=== PATIENT | male | born 1945 | race Caucasian/White ===

== ENCOUNTER 2024-11-09 13:31 | Outpatient (CLI) | payer MEDICARE, OTHER, SELFPAY ==
--- NOTE | 2024-11-09 14:00 | CRLHL7_ITS ---
For Patients: As a result of the 21st Century Cures Act, medical imaging exams and procedure reports are released immediately into your electronic medical record. You may view this report before your referring provider. If you have questions, please contact your health care provider. INDICATION: Evaluate for ventral hernia TECHNIQUE: CT abdomen and pelvis without contrast. COMPARISON: None. FINDINGS: Lower chest: 4 mm noncalcified nodule posterior right lower lobe image 17 series 3. Liver: Normal in size and attenuation. No masses. Gallbladder and bile ducts: No stones or inflammation. No biliary dilatation. Pancreas: Unremarkable. No mass or inflammation. Spleen: Normal in size. No masses. Adrenal glands: Normal in size. No nodules. Kidneys: Normal in size. No masses, stones, or hydronephrosis. GI tract: Unremarkable. Normal in caliber. No sign of mass or inflammation. Vasculature: Postop changes of open abdominal aortic aneurysm repair. 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 Lymph nodes: No lymphadenopathy. Abdominal wall/Omentum/Peritoneum: Multiple small midline fat containing ventral hernias extending from the superior aspect of the umbilicus 2 point 6 cm inferior to the xiphoid process. There is also a small umbilical hernia containing a loop of unobstructed small bowel. Pelvis: Unremarkable. No pelvic masses. 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 IMPRESSION: 1. Multiple small fat containing ventral hernias. 2. Small umbilical hernia containing unobstructed small bowel. 3. 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 4. 4 mm right lower lobe pulmonary nodule. Follow-up guidelines below. [employer] G[employer] - SOLID NODULES: SINGLE LOW RISK - nodule less than 6 mm: No routine follow-up. - nodule 6-8 mm: CT at 6-12 months, then consider CT at 18-24 months. - nodule greater than 8 mm: Consider CT at 3 months, PET/CT or tissue sampling. SINGLE HIGH RISK - nodule less than 6 mm: Optional CT at 12 months. - nodule 6-8 mm: CT at 6-12 months, then CT at 18-24 months. - nodule greater than 8 mm: Consider CT at 3 months, PET/CT or tissue sampling. Please note that all CT scans at this facility use dose modulation, iterative reconstruction, and/or weight-based dosing when appropriate to reduce radiation dose to as low as reasonably achievable. Dictated by Daryl He MD @ 11/10/2024 10:46:23 AM (Electronically Signed)
== END 2024-11-09 13:32 | disposition home or self-care (01) ==
LOC: CT 13:34
PROVIDERS: PCP Student in an Organized Health Care Education/Training Program; Visit Provider Surgery
DX: K43.2 Incisional hernia without obstruction or gangrene (principal); K42.9 Umbilical hernia without obstruction or gangrene; I71.23 Aneurysm of the descending thoracic aorta, without rupture; R91.1 Solitary pulmonary nodule
CPT/HCPCS: 74176